=== PATIENT | female | born 1995 | race American Indian/Alaskan Native ===

== ENCOUNTER 2019-09-06 02:34 | Inpatient (IN) | payer MEDICAID ==
[2019-09-06] MEDS ORDERED: Nalbuphine 10 MG/ML Syringe IVPUSH PRN (03:41)
[2019-09-06] MEDS ORDERED: Azithromycin 500 MG in Sodium Chloride 0.9% 250 ML IV ONE (03:41)
[2019-09-06] MEDS ORDERED: ceFAZolin 2 GM in Premix Bag 1 BAG IV ONE (03:41)
[2019-09-06] MEDS ORDERED: Metoclopramide 10 MG/2 ML SDV IVPUSH ONE (03:41)
[2019-09-06] MEDS ORDERED: Citric Acid/Sodium Citrate Solution 30 ML Cup PO ONE (03:41)
[2019-09-06] MEDS ORDERED: Sodium Chloride 0.9% 10 ML Syringe FLUSH PRN (03:41)
[2019-09-06] MEDS ORDERED: Ondansetron 4 MG/2 ML SDV IVPUSH PRN ×2 (03:41→04:43)
[2019-09-06] MEDS ORDERED: Lactated Ringers 1,000 ML IV SCH (03:45)
--- NOTE | 2019-09-06 03:54 | PCM.LDHP ---
L&D History of Present Illness - General Date of Service: 09/06/19 Admit Problem/Dx: Patient Status Order with Admit Dx/Problem 09/06/19 03:03 Patient Status [ADT] Routine Admission Diagnosis/Problem Admission Diagnosis/Problem Source of Information: Patient History Limitations: Reports: No Limitations - History of Present Illness Introduction:: Patient is a 24 y/o at 38 6/7 wks who presents with contraction. 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 (Approximate): - Past Surgical History Female Surgical History: Reports: D&C Social & Family History - Tobacco Use Smoking Status *Q: Never Smoker - Alcohol Use Alcohol Use History: No - Recreational Drug Use Recreational Drug Use: No H&P Review of Systems - Review of Systems: Review Of Systems: See Below General: Reports: No Symptoms Pulmonary: Reports: No Symptoms Cardiovascular: Reports: No Symptoms Gastrointestinal: Reports: Abdominal Pain Genitourinary: Reports: No Symptoms Musculoskeletal: Reports: No Symptoms Psychiatric: Reports: No Symptoms Neurological: Reports: No Symptoms L&D Exam - Exam Exam: See Below - OB Specific Contraction Intensity: Moderate to Strong Movement: Active Heart Tones: Present Heart Tones per Min: 145 Heart Rate (FHR) Variability: Moderate (6-25 bmp) Presentation: Breech (footling) - Dodson Score Dodson Score Cervix Position: Anterior Dodson Score Consistency: Soft Dodson Score Effacement: >80% Dodson Score Dilation: > 5 cm (Patient complete / complete / BBOW) Dodson Score 's Station: +1, +2 Dodson Score Total: 13 - Exam General: Alert, Oriented, Cooperative Lungs: Clear to Auscultation, Normal Respiratory Effort Cardiovascular: Regular Rate, Regular Rhythm GI/Abdominal Exam: Soft, Non-Tender Genitourinary: Normal external exam Extremities: Normal Inspection Skin: Warm, Dry, Intact - Problem List (1) 38 weeks gestation of SNOMED Code(s): 54054260 ICD Code: Z3A.38 - 38 WEEKS GESTATION OF Status: Acute Current Visit: Yes (2) Breech presentation SNOMED Code(s): 0700531 ICD Code: O32.1XX0 - MATERNAL CARE FOR BREECH PRESENTATION, UNSP Status: Acute Current Visit: Yes Qualifiers: Fetus number: single or unspecified fetus Qualified Code(s): O32.1XX0 - Maternal care for breech presentation, not applicable or unspecified Problem List Initiated/Reviewed/Updated: Yes Orders Last 24hrs: Active Orders 24 hr Category Date Time Status Patient Status [ADT] Routine ADT 09/06/19 03:03 Active Communication Order [RC] ROUTINE Care 09/06/19 03:41 Ordered Heart Tones [RC] PER UNIT ROUTINE Care 09/06/19 03:41 Ordered Non Stress Test [RC] PER UNIT ROUTINE Care 09/06/19 03:03 Active Peripheral IV Care [RC] . DIRECTED Care 09/06/19 03:41 Ordered Procedure Site Prep Instruct [RC] ASDIRECTED Care 09/06/19 03:41 Ordered Verify Patient Consent Obtain [RC] PER UNIT ROUTINE Care 09/06/19 03:41 Ordered Vital Signs [RC] PER UNIT ROUTINE Care 09/06/19 03:03 Active Vital Signs [RC] PFP Care 09/06/19 03:41 Ordered CBC W/O DIFF,HEMOGRAM [HEME] Routine Lab 09/06/19 03:41 Ordered RAPID PLASMA REAGIN,RPR [CHEM] Routine Lab 09/06/19 03:41 Ordered TYPE AND SCREEN [BBK] Routine Lab 09/06/19 03:41 Ordered Azithromycin [Zithromax] 500 mg Med 09/06/19 03:41 Ordered Sodium Chloride 0.9% [Normal Saline] 250 ml IV ONETIME Citric Acid/Sodium Citrate [Bicitra Solution] Med 09/06/19 03:41 Once 30 ml PO ONETIME ONE Lactated Ringers @ 125 MLS/HR(1000ml) Med 09/06/19 03:45 Ordered Lactated Ringers [Ringers, Lactated] 1,000 ml IV ASDIRECTED Metoclopramide [Reglan] Med 09/06/19 03:41 Once 10 mg IVPUSH ONETIME ONE Nalbuphine [Nubain] Med 09/06/19 03:41 Ordered 10 mg IVPUSH Q2H PRN Ondansetron [Zofran] Med 09/06/19 03:41 Ordered 4 mg IVPUSH Q4H PRN Sodium Chloride 0.9% [Saline Flush] Med 09/06/19 03:41 Ordered 10 ml FLUSH ASDIRECTED PRN ceFAZolin [Ancef] 2 gm Med 09/06/19 03:41 Ordered Premix Bag 1 bag IV ONETIME Peripheral IV Insertion Adult [OM.PC] Routine Oth 09/06/19 03:41 Ordered Schedule Procedure [COMM] Per Unit Routine Oth 09/06/19 03:41 Ordered Resuscitation Status Routine Resus Stat 09/06/19 03:03 Ordered Medication Orders Citric Acid/Sodium Citrate (Bicitra Solution) 30 ml PO ONETIME ONE Stop: 09/06/19 03:42 Azithromycin 500 mg/ Sodium (Chloride) 250 mls @ 250 mls/hr IV ONETIME ONE Stop: 09/06/19 04:40 Cefazolin Sodium/Dextrose 2 gm (/ Premix) 50 mls @ 100 mls/hr IV ONETIME ONE Stop: 09/06/19 04:10 Lactated Ringer's (Ringers, Lactated) 1,000 mls @ 125 mls/hr IV ASDIRECTED TOI Metoclopramide HCl (Reglan) 10 mg IVPUSH ONETIME ONE Stop: 09/06/19 03:42 Nalbuphine HCl (Nubain) 10 mg IVPUSH Q2H PRN PRN Reason: Pain Ondansetron HCl (Zofran) 4 mg IVPUSH Q4H PRN PRN Reason: Nausea/Vomiting Sodium Chloride (Saline Flush) 10 ml FLUSH ASDIRECTED PRN PRN Reason: Keep Vein Open Assessment/Plan Comment:: Patient complete with breech presentation. Will take for PLTCS. Reviewed risks/ benefits. Consent signed. OR and Peds made aware. Concetta Brizuela MD
--- NOTE | 2019-09-06 03:59 | PCM.PREANE ---
Preanesthetic Assessment - Procedure Proposed Procedure: csection - Anesthesia/Transfusion/Family Hx Anesthesia History: Prior Anesthesia Without Reaction Family History of Anesthesia Reaction: No Transfusion History: Prior Transfusion Without Reaction - Review of Systems General: No Symptoms Pulmonary: No Symptoms Cardiovascular: No Symptoms Gastrointestinal: No Symptoms Neurological: No Symptoms Other: Reports: None - Physical Assessment NPO Status Date: 09/05/19 NPO Status Time: 21:00 Vital Signs: 93 142/74 20 Height: 5 ft 9 in Weight: 115.212 kg ASA Class: 2E Mental Status: Alert & Oriented x3 Airway Class: Mallampati = 1 Dentition: Reports: Normal Dentition Thyro-Mental Finger Breadths: 3 Mouth Opening Finger Breadths: 3 ROM/Head Extension: Full Lungs: Clear to Auscultation, Normal Respiratory Effort Cardiovascular: Regular Rate, Regular Rhythm - Blood Blood Available: No - Acknowledgements Anesthesia Type Planned: Spinal Pt an Appropriate Candidate for the Planned Anesthesia: Yes Alternatives and Risks of Anesthesia Discussed w Pt/Guardian: Yes Pt/Guardian Understands and Agrees with Anesthesia Plan: Yes PreAnesthesia Questionnaire HEENT History: Reports: None Cardiovascular History: Reports: Heart Murmur (when younger- gone now) Respiratory History: Reports: None 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: - Past Surgical History Female Surgical History: Reports: D&C - SUBSTANCE USE Smoking Status *Q: Never Smoker Tobacco Use Within Last Twelve Months: No Second Hand Smoke Exposure: No Recreational Drug Use History: No - CURRENT (IN HOUSE) MEDS Current Meds: Current Medications Citric Acid/Sodium Citrate (Bicitra Solution) 30 ml PO ONETIME ONE Stop: 09/06/19 03:42 Azithromycin 500 mg/ Sodium (Chloride) 250 mls @ 250 mls/hr IV ONETIME ONE Stop: 09/06/19 04:40 Cefazolin Sodium/Dextrose 2 gm (/ Premix) 50 mls @ 100 mls/hr IV ONETIME ONE Stop: 09/06/19 04:10 Lactated Ringer's (Ringers, Lactated) 1,000 mls @ 125 mls/hr IV ASDIRECTED TOI Metoclopramide HCl (Reglan) 10 mg IVPUSH ONETIME ONE Stop: 09/06/19 03:42 Nalbuphine HCl (Nubain) 10 mg IVPUSH Q2H PRN PRN Reason: Pain Ondansetron HCl (Zofran) 4 mg IVPUSH Q4H PRN PRN Reason: Nausea/Vomiting Sodium Chloride (Saline Flush) 10 ml FLUSH ASDIRECTED PRN PRN Reason: Keep Vein Open
[2019-09-06] MEDS ORDERED: Sodium Chloride 0.9% 250 ML ONE (04:02)
[2019-09-06] MEDS ORDERED: ceFAZolin 1 GM Vial ONE (04:05)
[2019-09-06] MEDS ORDERED: Oxytocin 10 Units/1 ML SDV ONE (04:05)
[2019-09-06] MEDS ORDERED: Ketorolac 30 MG/ML SDV ONE (04:05)
[2019-09-06] MEDS ORDERED: Morphine PF 10 MG/10 ML SDV ONE (04:05)
[2019-09-06] MEDS ORDERED: ePHEDrine/Normal Saline 25 MG/5 ML Syringe ONE (04:19)
[2019-09-06] MEDS ORDERED: diphenhydrAMINE 50 MG/ML SDV IVPUSH PRN ×2 (04:43→05:47)
[2019-09-06] MEDS ORDERED: fentaNYL 100 MCG/2 ML SDV IVPUSH PRN (04:43)
--- NOTE | 2019-09-06 05:06 | PCM.OPNOTE ---
- General Post-Op/Procedure Note Date of Surgery/Procedure: 09/06/19 Operative Procedure(s): Primary low transverse Findings: Baby boy in a footling breech presentation. Weight of 8 lbs 12 oz. AGPARS of 3 & 9. Normal appearance of the uterus, fallopian tubes, and ovaries. Pre Op Diagnosis: 38 6/7 weeks. Footling breech. Labor Post-Op Diagnosis: Same Anesthesia Technique: Spinal Primary Surgeon: Concetta Brizuela Secondary Surgeon: Gregory Duncan Anesthesia Provider: Prosper Chaves Reason Atmospheric Physicist Was Necessary: BMI of patient. Speed/safety of procedure Pathology: Cord gas segment obtained. Cord blood obtained. Placenta discarded Fluid Replacement, Intraop: 2,100 Output, Urine Amount: 50 EBL in mLs: 1,000 Complications: None Condition: Good Free Text/Narrative:: The risks, benefits, indications, potential complications, and alternatives were explained to the patient and informed consent obtained. After induction of anesthesia, the patient was placed in a supine position and then draped and prepped in the usual sterile manner. A Pfannenstiel incision was made and carried down through the subcutaneous tissue to the fascia. Fascial incision was made and extended transversely. The fascia was from the underlying rectus tissue superiorly and inferiorly. The peritoneum was identified and entered. Peritoneal incision was extended longitudinally. The utero-vesical peritoneal reflection was incised transversely and the bladder flap was bluntly freed from the lower uterine segment. A low transverse uterine incision was made sharply with a scalpel and extended bluntly in a cephalocaudad direction. A baby boy was delivered from a breech presentation with standard maneuvers. APGARS as above. After the umbilical cord was clamped and cut segment obtained for cord gas. Next, cord blood was obtained for evaluation. The placenta was removed intact and appeared normal. The uterus was exteriorized and cleared of clots. The uterine outline, tubes and ovaries appeared normal. The uterine incision was closed with running locked sutures of 0 Vicryl. Hemostasis was obtained by a second imbricating layer of 0 vicryl. The uterus was then placed back into the abdomen. The infracolic gutters were cleared of blood clots. The fascia was then reapproximated with running sutures of 0 Vicryl. The subcutaneous tissue was irrigated with sterile warm normal saline, hemostasis obtained with cautery. This layer was also closed with a running 0 vicryl suture. The skin was reapproximated with running Subcuticular 4-0 monocryl sutures. Instrument, sponge, and needle counts were correct prior the abdominal closure and at the conclusion of the case.
--- NOTE | 2019-09-06 05:07 | PCM.POSTAN ---
POST ANESTHESIA ASSESSMENT - MENTAL STATUS Mental Status: Alert, Oriented - RESPIRATORY Respiratory Status: Respiratory Rate WNL, Airway Patent, O2 Saturation Stable, Supplemental Oxygen - CARDIOVASCULAR CV Status: Pulse Rate WNL, Blood Pressure Stable - GASTROINTESTINAL GI Status: No Symptoms - PAIN Pain Score: 0 - POST OP HYDRATION Hydration Status: Adequate & Stable
[2019-09-06] MEDS ORDERED: Dextrose 5%-Lactated Ringers 1,000 ML IV SCH (05:47)
[2019-09-06] MEDS ORDERED: Ondansetron 4 MG/2 ML SDV IV PRN (05:47)
[2019-09-06] MEDS ORDERED: Naloxone 0.4 MG/ML SDV IVPUSH PRN (05:47)
[2019-09-06] MEDS ORDERED: ePHEDrine 50 MG/ML SDV IVPUSH PRN (05:47)
[2019-09-06] MEDS ORDERED: Docusate Sodium 100 MG Cap PO PRN (05:47)
[2019-09-06] MEDS ORDERED: Lactated Ringers 500 ML IV ONE (12:12)
[2019-09-06] MEDS: Ketorolac 30 MG/ML SDV IVPUSH SCH ×3 (12:19→22:15)
--- NOTE | 2019-09-06 19:45 | PCM48HPAN ---
Post Anesthesia Note - EVALUATION WITHIN 48HRS OF ANESTHETIC Vital Signs in Normal Range: Yes Patient Participated in Evaluation: Yes Respiratory Function Stable: Yes Airway Patent: Yes Cardiovascular Function Stable: Yes Hydration Status Stable: Yes Pain Control Satisfactory: Yes Nausea and Vomiting Control Satisfactory: Yes Mental Status Recovered: Yes Vital Signs: Last Vital Signs Temp 97.3 F 09/06/19 17:20 Pulse 94 09/06/19 17:20 Resp 26 H 09/06/19 19:00 BP 100/53 L 09/06/19 17:20 Pulse Ox 97 09/06/19 19:00 - COMMENTS/OBSERVATIONS Free Text/Narrative:: sitting up in bed holding baby. no complaints
[2019-09-07] MEDS ORDERED: Ibuprofen 600 MG Tab PO PRN (04:00)
[2019-09-07] MEDS: Acetaminophen/oxyCODONE 325-5 MG Tab PO PRN ×4 (04:23→22:34)
--- NOTE | 2019-09-07 07:15 | PCM.PNPP ---
- General Info Date of Service: 09/07/19 Functional Status: Reports: Pain Controlled, Tolerating Diet, Ambulating, Urinating - Review of Systems General: Reports: No Symptoms Pulmonary: Reports: No Symptoms Cardiovascular: Reports: No Symptoms Gastrointestinal: Reports: Abdominal Pain (managed with medications ) Genitourinary: Reports: No Symptoms Musculoskeletal: Reports: No Symptoms Neurological: Reports: No Symptoms - Patient Data Vital Signs - Most Recent: Last Vital Signs Temp 37.3 C 09/07/19 04:19 Pulse 97 09/07/19 04:19 Resp 22 H 09/07/19 07:00 BP 110/59 L 09/07/19 04:19 Pulse Ox 98 09/07/19 07:00 Weight - Most Recent: 115.212 kg I&O - Last 24 Hours: Intake & Output 09/06/19 09/07/19 09/07/19 22:59 06:59 14:59 Intake Total 440 Output Total 1000 1425 Balance -560 -1425 Lab Results - Last 24 Hours: Laboratory Results - last 24 hr 09/07/19 Range/Units 05:50 WBC 9.26 (3.98-10.04) K/mm3 RBC 3.24 L (3.98-5.22) M/mm3 Hgb 8.5 L D (11.2-15.7) gm/dl Hct 26.7 L (34.1-44.9) % MCV 82.4 (79.4-94.8) fl MCH 26.2 (25.6-32.2) pg MCHC 31.8 L (32.2-35.5) g/dl RDW Std Deviation 42.6 (36.4-46.3) fL Plt Count 227 D (182-369) K/mm3 MPV 10.3 (9.4-12.3) fl Med Orders - Current: Current Medications Diphenhydramine HCl (Benadryl) 25 mg IVPUSH Q6H PRN PRN Reason: Pruritis Diphenhydramine HCl (Benadryl) 25 mg IVPUSH Q6H PRN PRN Reason: Itching or Nausea Docusate Sodium (Colace) 100 mg PO Q12H PRN PRN Reason: Constipation Ephedrine Sulfate (Ephedrine Sulfate) 5 mg IVPUSH SEECOMMENT PRN PRN Reason: Other Fentanyl (Sublimaze) 50 mcg IVPUSH Q5M PRN PRN Reason: Pain Ibuprofen (Motrin) 600 mg PO Q6H PRN PRN Reason: mild pain or fever Naloxone HCl (Narcan) 0.1 mg IVPUSH SEECOMMENT PRN PRN Reason: Respiratory Depression Ondansetron HCl (Zofran) 4 mg IVPUSH ONETIME PRN PRN Reason: Nausea/Vomiting Ondansetron HCl (Zofran) 4 mg IV Q8H PRN PRN Reason: Nausea/Vomiting Oxycodone/Acetaminophen (Percocet 325-5 Mg) 2 tab PO Q4H PRN PRN Reason: Pain (severe 7-10) Last Admin: 09/07/19 04:23 Dose: 2 tab Discontinued Medications Cefazolin Sodium (Ancef) Confirm Administered Dose 2 gm .ROUTE .STK-MED ONE Stop: 09/06/19 04:06 Citric Acid/Sodium Citrate (Bicitra Solution) 30 ml PO ONETIME ONE Stop: 09/06/19 03:42 Last Admin: 09/06/19 04:00 Dose: 30 ml Ephedrine Sulfate (Ephedrine In Ns) Confirm Administered Dose 25 mg .ROUTE .STK- MED ONE Stop: 09/06/19 04:20 Azithromycin 500 mg/ Sodium (Chloride) 250 mls @ 250 mls/hr IV ONETIME ONE Stop: 09/06/19 04:40 Last Admin: 09/06/19 08:06 Dose: Not Given Cefazolin Sodium/Dextrose 2 gm (/ Premix) 50 mls @ 100 mls/hr IV ONETIME ONE Stop: 09/06/19 04:10 Last Admin: 09/06/19 09:42 Dose: Not Given Lactated Ringer's (Ringers, Lactated) 1,000 mls @ 125 mls/hr IV ASDIRECTED [facility] Last Admin: 09/06/19 03:50 Dose: 999 mls/hr Sodium Chloride (Normal Saline) Confirm Administered Dose 250 mls @ as directed .ROUTE .STK-MED ONE Stop: 09/06/19 04:03 Last Admin: 09/06/19 08:06 Dose: Not Given Dextrose/Lactated Ringer's (Dextrose 5%-Lactated Ringers) 1,000 mls @ 125 mls/ hr IV ASDIRECTED [facility] Stop: 09/06/19 13:46 Last Admin: 09/06/19 08:08 Dose: 125 mls/hr Lactated Ringer's (Ringers, Lactated) 500 mls @ 999 mls/hr IV .BOLUS ONE Stop: 09/06/19 12:42 Last Admin: 09/06/19 12:20 Dose: 999 mls/hr Ketorolac Tromethamine (Toradol) Confirm Administered Dose 30 mg .ROUTE .STK- MED ONE Stop: 09/06/19 04:06 Ketorolac Tromethamine (Toradol) 30 mg IVPUSH Q6H TOI Stop: 09/06/19 22:01 Last Admin: 09/06/19 22:15 Dose: 30 mg Metoclopramide HCl (Reglan) 10 mg IVPUSH ONETIME ONE Stop: 09/06/19 03:42 Last Admin: 09/06/19 04:02 Dose: 10 mg Morphine Sulfate (Duramorph Pf) Confirm Administered Dose 10 mg .ROUTE .STK-MED ONE Stop: 09/06/19 04:06 Nalbuphine HCl (Nubain) 10 mg IVPUSH Q2H PRN PRN Reason: Pain Ondansetron HCl (Zofran) 4 mg IVPUSH Q4H PRN PRN Reason: Nausea/Vomiting Oxytocin (Pitocin) Confirm Administered Dose 10 unit .ROUTE .STK-MED ONE Stop: 09/06/19 04:06 Sodium Chloride (Saline Flush) 10 ml FLUSH ASDIRECTED PRN PRN Reason: Keep Vein Open - Infant Interaction Disposition, : in Room with Family Interaction: Holding Infant Feeding: Breastfed ; Nursed Well Support Person: Significant Other - Recovery Exam Fundal Tone: Firm Fundal Level: 1 Fingerbreadths Below Umbilicus Fundal Placement: Midline Lochia Amount: Small, Moderate Lochia Color: Rubra/Red Perineum Description: Intact, Minimal Bruising/Swelling Episiotomy/Laceration: None Bladder Status: Voiding Urinary Elimination: Voided - Exam General: Alert, Oriented, Cooperative Lungs: Clear to Auscultation, Normal Respiratory Effort Cardiovascular: Regular Rate, Regular Rhythm GI/Abdominal Exam: Soft, Tender (appropriate ) Extremities: Normal Inspection Skin: Warm, Dry, Intact Wound/Incisions: Healing Well, No Drainage - Problem List & Annotations (1) 38 weeks gestation of SNOMED Code(s): 62010712 Code(s): Z3A.38 - 38 WEEKS GESTATION OF Status: Acute Current Visit: Yes (2) Breech presentation SNOMED Code(s): 1319156 Code(s): O32.1XX0 - MATERNAL CARE FOR BREECH PRESENTATION, UNSP Status: Acute Current Visit: Yes Qualifiers: Fetus number: single or unspecified fetus Qualified Code(s): O32.1XX0 - Maternal care for breech presentation, not applicable or unspecified (3) S/P primary low transverse SNOMED Code(s): 080647934, 04678494, 508313665, 031437324, 467010869 Code(s): Z98.891 - HISTORY OF UTERINE SCAR FROM PREVIOUS SURGERY Status: Acute Current Visit: Yes - Problem List Review Problem List Initiated/Reviewed/Updated: Yes - My Orders Last 24 Hours: My Active Orders 09/06/19 Breakfast Regular Diet [DIET] 09/07/19 04:00 Ibuprofen [Motrin] 600 mg PO Q6H PRN 09/07/19 05:07 Urinary Catheter Removal [RC] Per Unit Routine - Assessment Assessment:: PPD#1 from PLTCS - Plan Plan:: * Routine cares * Breast feeding * Discharge home in 1-2 days
[2019-09-08] MEDS: Acetaminophen/oxyCODONE 325-5 MG Tab PO PRN (03:15)
--- NOTE | 2019-09-08 07:44 | PCM.PNPP ---
- General Info Date of Service: 09/08/19 Functional Status: Reports: Pain Controlled, Tolerating Diet, Ambulating, Urinating - Review of Systems General: Reports: No Symptoms Pulmonary: Reports: No Symptoms Cardiovascular: Reports: No Symptoms Gastrointestinal: Reports: No Symptoms Genitourinary: Reports: No Symptoms Musculoskeletal: Reports: No Symptoms Neurological: Reports: No Symptoms - Patient Data Vital Signs - Most Recent: Last Vital Signs Temp 36.8 C 09/08/19 03:17 Pulse 86 09/08/19 03:17 Resp 17 09/07/19 21:31 BP 106/58 L 09/08/19 03:17 Pulse Ox 95 09/08/19 03:17 Weight - Most Recent: 115.212 kg Lab Results - Last 24 Hours: Laboratory Results - last 24 hr 09/06/19 Range/Units 03:45 RPR Non-reactive (NONREACTIVE) Med Orders - Current: Current Medications Diphenhydramine HCl (Benadryl) 25 mg IVPUSH Q6H PRN PRN Reason: Pruritis Diphenhydramine HCl (Benadryl) 25 mg IVPUSH Q6H PRN PRN Reason: Itching or Nausea Docusate Sodium (Colace) 100 mg PO Q12H PRN PRN Reason: Constipation Last Admin: 09/08/19 03:15 Dose: 100 mg Ephedrine Sulfate (Ephedrine Sulfate) 5 mg IVPUSH SEECOMMENT PRN PRN Reason: Other Fentanyl (Sublimaze) 50 mcg IVPUSH Q5M PRN PRN Reason: Pain Ibuprofen (Motrin) 600 mg PO Q6H PRN PRN Reason: mild pain or fever Naloxone HCl (Narcan) 0.1 mg IVPUSH SEECOMMENT PRN PRN Reason: Respiratory Depression Ondansetron HCl (Zofran) 4 mg IVPUSH ONETIME PRN PRN Reason: Nausea/Vomiting Ondansetron HCl (Zofran) 4 mg IV Q8H PRN PRN Reason: Nausea/Vomiting Oxycodone/Acetaminophen (Percocet 325-5 Mg) 2 tab PO Q4H PRN PRN Reason: Pain (severe 7-10) Last Admin: 09/08/19 03:15 Dose: 2 tab Discontinued Medications Cefazolin Sodium (Ancef) Confirm Administered Dose 2 gm .ROUTE .STK-MED ONE Stop: 09/06/19 04:06 Citric Acid/Sodium Citrate (Bicitra Solution) 30 ml PO ONETIME ONE Stop: 09/06/19 03:42 Last Admin: 09/06/19 04:00 Dose: 30 ml Ephedrine Sulfate (Ephedrine In Ns) Confirm Administered Dose 25 mg .ROUTE .STK- MED ONE Stop: 09/06/19 04:20 Azithromycin 500 mg/ Sodium (Chloride) 250 mls @ 250 mls/hr IV ONETIME ONE Stop: 09/06/19 04:40 Last Admin: 09/06/19 08:06 Dose: Not Given Cefazolin Sodium/Dextrose 2 gm (/ Premix) 50 mls @ 100 mls/hr IV ONETIME ONE Stop: 09/06/19 04:10 Last Admin: 09/06/19 09:42 Dose: Not Given Lactated Ringer's (Ringers, Lactated) 1,000 mls @ 125 mls/hr IV [facility]RECTED [facility] Last Admin: 09/06/19 03:50 Dose: 999 mls/hr Sodium Chloride (Normal Saline) Confirm Administered Dose 250 mls @ as directed .ROUTE .STK-MED ONE Stop: 09/06/19 04:03 Last Admin: 09/06/19 08:06 Dose: Not Given Dextrose/Lactated Ringer's (Dextrose 5%-Lactated Ringers) 1,000 mls @ 125 mls/ hr IV [facility]IRECTED [facility] Stop: 09/06/19 13:46 Last Admin: 09/06/19 08:08 Dose: 125 mls/hr Lactated Ringer's (Ringers, Lactated) 500 mls @ 999 mls/hr IV .BOLUS ONE Stop: 09/06/19 12:42 Last Admin: 09/06/19 12:20 Dose: 999 mls/hr Ketorolac Tromethamine (Toradol) Confirm Administered Dose 30 mg .ROUTE .STK- MED ONE Stop: 09/06/19 04:06 Ketorolac Tromethamine (Toradol) 30 mg IVPUSH Q6H TOI Stop: 09/06/19 22:01 Last Admin: 09/06/19 22:15 Dose: 30 mg Metoclopramide HCl (Reglan) 10 mg IVPUSH ONETIME ONE Stop: 09/06/19 03:42 Last Admin: 09/06/19 04:02 Dose: 10 mg Morphine Sulfate (Duramorph Pf) Confirm Administered Dose 10 mg .ROUTE .STK-MED ONE Stop: 09/06/19 04:06 Nalbuphine HCl (Nubain) 10 mg IVPUSH Q2H PRN PRN Reason: Pain Ondansetron HCl (Zofran) 4 mg IVPUSH Q4H PRN PRN Reason: Nausea/Vomiting Oxytocin (Pitocin) Confirm Administered Dose 10 unit .ROUTE .STK-MED ONE Stop: 09/06/19 04:06 Sodium Chloride (Saline Flush) 10 ml FLUSH ASDIRECTED PRN PRN Reason: Keep Vein Open - Interaction Disposition, : [place] in Room with Family Interaction: Holding Infant Feeding: Bottle Fed Infant, Breastfed Infant; Nursed Well Support Person: Significant Other - Recovery Exam Fundal Tone: Firm Fundal Level: 2 Fingerbreadths Below Umbilicus Fundal Placement: Midline Lochia Amount: Small Lochia Color: Rubra/Red Perineum Description: Intact, Minimal Bruising/Swelling Episiotomy/Laceration: None Bladder Status: Voiding Urinary Elimination: Voided - Exam General: Alert, Oriented, Cooperative Lungs: Clear to Auscultation, Normal Respiratory Effort Cardiovascular: Regular Rate, Regular Rhythm GI/Abdominal Exam: Soft, Tender (appropriate) Extremities: Normal Inspection Skin: Warm, Dry, Intact Wound/Incisions: Healing Well, No Drainage - Problem List & Annotations (1) 38 weeks gestation of SNOMED Code(s): 77343286 Code(s): Z3A.38 - 38 WEEKS GESTATION OF Status: Acute Current Visit: Yes (2) Breech presentation SNOMED Code(s): 1074450 Code(s): O32.1XX0 - MATERNAL CARE FOR BREECH PRESENTATION, UNSP Status: Acute Current Visit: Yes Qualifiers: Fetus number: single or unspecified fetus Qualified Code(s): O32.1XX0 - Maternal care for breech presentation, not applicable or unspecified (3) S/P primary low transverse SNOMED Code(s): 360873461, 29446536, 872382411, 140383437, 030159105 Code(s): Z98.891 - HISTORY OF UTERINE SCAR FROM PREVIOUS SURGERY Status: Acute Current Visit: Yes - Problem List Review Problem List Initiated/Reviewed/Updated: Yes - Assessment Assessment:: PPD#2 from PLTCS - Plan Plan:: * Routine cares * Breast feeding * Discharge home today
--- NOTE | 2019-09-08 07:48 | PCM.DCSUM1 ---
Discharge Summary - Discharge Data Discharge Date: 09/08/19 Discharge Disposition: Home, Self-Care 01 Condition: Good - Referral to Home Health Primary Care Physician: Concetta Brizuela MD - Discharge Diagnosis/Problem(s) (1) 38 weeks gestation of SNOMED Code(s): 39044365 ICD Code: Z3A.38 - 38 WEEKS GESTATION OF Status: Acute (2) Breech presentation SNOMED Code(s): 4449570 ICD Code: O32.1XX0 - MATERNAL CARE FOR BREECH PRESENTATION, UNSP Status: Acute Qualifiers: Fetus number: single or unspecified fetus Qualified Code(s): O32.1XX0 - Maternal care for breech presentation, not applicable or unspecified (3) S/P primary low transverse SNOMED Code(s): 286249995, 13135313, 500616463, 940376840, 800797016 ICD Code: Z98.891 - HISTORY OF UTERINE SCAR FROM PREVIOUS SURGERY Status: Acute - Patient Summary/Data Operative Procedure(s) Performed: Primary low transverse Complications: None Consults: None Recommended Follow-up Testing/Procedures: Follow up in 1 week for incision check Hospital Course: 24 y/o admitted at 38 6/7 wks for labor. On admission completely dilated, but with footling breech presentation. Taken for urgent . This was uncomplicated. See operative note. patient did well and was discharged home on PPD#2 - Patient Instructions Diet: Regular Diet as Tolerated Activity: No Lifting Over 10 Pounds Activity, Other: Pelvic rest for 6 weeks Driving: Do Not Drive (while taking narcotics ) Showering/Bathing: May Shower, No Tub Bathing/Swimming Wound/Incision Care: Keep Operative Site/Wound Site Clean and Dry Notify Provider of: Fever, Increased Pain, Swelling and Redness, Drainage, Nausea and/or Vomiting - Discharge Plan *PRESCRIPTION DRUG MONITORING PROGRAM REVIEWED*: Not Applicable *COPY OF PRESCRIPTION DRUG MONITORING REPORT IN PATIENT ISABEL: Not Applicable Prescriptions/Med Rec: Acetaminophen/oxyCODONE [Percocet 325-5 MG] 2 tab PO Q4H PRN #25 tablet PRN Reason: Pain (Severe 7-10) Home Medications: Home Meds Acetaminophen/oxyCODONE [Percocet 325-5 MG] 2 tab PO Q4H PRN #25 tablet [Rx] Docusate Sodium [Colace] 100 mg PO Q12H PRN cap 09/08/19 [Rx] Ibuprofen [Motrin] 600 mg PO Q6H PRN tablet 09/08/19 [Rx] Patient Handouts: Delivery, Care After Referrals: Korin Ingram MD [Physician] - (1 week for incision check ) - Discharge Summary/Plan Comment DC Time >30 min.: No - Patient Data Vitals - Most Recent: Last Vital Signs Temp 36.8 C 09/08/19 03:17 Pulse 86 09/08/19 03:17 Resp 17 09/07/19 21:31 BP 106/58 L 09/08/19 03:17 Pulse Ox 95 09/08/19 03:17 Weight - Most Recent: 115.212 kg Lab Results - Last 24 hrs: Laboratory Results - last 24 hr 09/06/19 Range/Units 03:45 RPR Non-reactive (NONREACTIVE) Med Orders - Current: Current Medications Diphenhydramine HCl (Benadryl) 25 mg IVPUSH Q6H PRN PRN Reason: Pruritis Diphenhydramine HCl (Benadryl) 25 mg IVPUSH Q6H PRN PRN Reason: Itching or Nausea Docusate Sodium (Colace) 100 mg PO Q12H PRN PRN Reason: Constipation Last Admin: 09/08/19 03:15 Dose: 100 mg Ephedrine Sulfate (Ephedrine Sulfate) 5 mg IVPUSH SEECOMMENT PRN PRN Reason: Other Fentanyl (Sublimaze) 50 mcg IVPUSH Q5M PRN PRN Reason: Pain Ibuprofen (Motrin) 600 mg PO Q6H PRN PRN Reason: mild pain or fever Naloxone HCl (Narcan) 0.1 mg IVPUSH SEECOMMENT PRN PRN Reason: Respiratory Depression Ondansetron HCl (Zofran) 4 mg IVPUSH ONETIME PRN PRN Reason: Nausea/Vomiting Ondansetron HCl (Zofran) 4 mg IV Q8H PRN PRN Reason: Nausea/Vomiting Oxycodone/Acetaminophen (Percocet 325-5 Mg) 2 tab PO Q4H PRN PRN Reason: Pain (severe 7-10) Last Admin: 09/08/19 03:15 Dose: 2 tab Discontinued Medications Cefazolin Sodium (Ancef) Confirm Administered Dose 2 gm .ROUTE .K-MED ONE Stop: 09/06/19 04:06 Citric Acid/Sodium Citrate (Bicitra Solution) 30 ml PO ONETIME ONE Stop: 09/06/19 03:42 Last Admin: 09/06/19 04:00 Dose: 30 ml Ephedrine Sulfate (Ephedrine In Ns) Confirm Administered Dose 25 mg .ROUTE .K- MED ONE Stop: 09/06/19 04:20 Azithromycin 500 mg/ Sodium (Chloride) 250 mls @ 250 mls/hr IV ONETIME ONE Stop: 09/06/19 04:40 Last Admin: 09/06/19 08:06 Dose: Not Given Cefazolin Sodium/Dextrose 2 gm (/ Premix) 50 mls @ 100 mls/hr IV ONETIME ONE Stop: 09/06/19 04:10 Last Admin: 09/06/19 09:42 Dose: Not Given Lactated Ringer's (Ringers, Lactated) 1,000 mls @ 125 mls/hr IV ASDIRECTED [facility] Last Admin: 09/06/19 03:50 Dose: 999 mls/hr Sodium Chloride (Normal Saline) Confirm Administered Dose 250 mls @ as directed .ROUTE .[facility]-MED ONE Stop: 09/06/19 04:03 Last Admin: 09/06/19 08:06 Dose: Not Given Dextrose/Lactated Ringer's (Dextrose 5%-Lactated Ringers) 1,000 mls @ 125 mls/ hr IV ASDIRECTED [facility] Stop: 09/06/19 13:46 Last Admin: 09/06/19 08:08 Dose: 125 mls/hr Lactated Ringer's (Ringers, Lactated) 500 mls @ 999 mls/hr IV .BOLUS ONE Stop: 09/06/19 12:42 Last Admin: 09/06/19 12:20 Dose: 999 mls/hr Ketorolac Tromethamine (Toradol) Confirm Administered Dose 30 mg .ROUTE .STK- MED ONE Stop: 09/06/19 04:06 Ketorolac Tromethamine (Toradol) 30 mg IVPUSH Q6H TOI Stop: 09/06/19 22:01 Last Admin: 09/06/19 22:15 Dose: 30 mg Metoclopramide HCl (Reglan) 10 mg IVPUSH ONETIME ONE Stop: 09/06/19 03:42 Last Admin: 09/06/19 04:02 Dose: 10 mg Morphine Sulfate (Duramorph Pf) Confirm Administered Dose 10 mg .ROUTE .STK-MED ONE Stop: 09/06/19 04:06 Nalbuphine HCl (Nubain) 10 mg IVPUSH Q2H PRN PRN Reason: Pain Ondansetron HCl (Zofran) 4 mg IVPUSH Q4H PRN PRN Reason: Nausea/Vomiting Oxytocin (Pitocin) Confirm Administered Dose 10 unit .ROUTE .STK-MED ONE Stop: 09/06/19 04:06 Sodium Chloride (Saline Flush) 10 ml FLUSH ASDIRECTED PRN PRN Reason: Keep Vein Open
[2019-09-08] MEDS ORDERED: Measles, Mumps & Rubella Vaccine 0.5 ML SDV SUBCUT ONE (10:15)
== END 2019-09-08 12:45 | disposition home or self-care (01) | DRG 788 ==
LOC: JD.OBCHECK 02:34 → JD.OB 02:56 → JD.OBCHECK 04:26 → JD.OB 04:26
PROVIDERS: ADMIT Obstetrics & Gynecology; ATTEND Obstetrics & Gynecology
PROC: 10D00Z1 Extraction of Products of Conception, Low, Open Approach (ICD-10-PCS; principal; 2019-09-06)
DX: O32.8XX0 Maternal care for other malpresentation of fetus, not applicable or unspecified (principal); Z3A.38 38 weeks gestation of pregnancy; Z37.0 Single live birth
CPT/HCPCS: 36415; 59025; 85027; 86592; 86850; 86900; 86901; 90471; 90707; 94762; A9270-GY; J0690; J1885; J2270; J2590; J2765; J7050; J7120; J7121

== ENCOUNTER 2020-12-04 20:29 | Emergency (ER) | payer MEDICAID, SELFPAY ==
[2020-12-04] MEDS ORDERED: LORazepam 0.5 MG Tab PO ONE (21:15)
--- NOTE | 2020-12-04 21:23 | EDM.PDOCBH ---
ED HPI GENERAL MEDICAL PROBLEM - General Chief Complaint: Behavioral/Psych Stated Complaint: POSS PANIC ATTACK Time Seen by Provider: 12/04/20 20:44 Source of Information: Reports: Patient, RN Notes Reviewed History Limitations: Reports: No Limitations - History of Present Illness INITIAL COMMENTS - FREE TEXT/NARRATIVE: Patient is a 25-year-old female who presents to the ED for the evaluation of a possible panic attack. Patient notes that she has been having issues with increased anxiety for the last month, she notes that the anxiety seems to started around 7 PM at night and lasts until around 10 PM at night. She has had increased stress at home, and states that she lost her father suddenly 6 months ago, and lost another close family member roughly 1 year ago. She states that when she was driving herself home tonight, she began to feel panicked, she started to hyperventilate, and states that she could not move her hands and had some chest discomfort, the chest discomfort goes away after the anxiety symptoms subside. She has no fevers or chills, cough/shortness of breath, nausea/vomiting/diarrhea. Patient was concerned about cardiac issues as her father from a heart attack. - Related Data Allergies Allergy/AdvReac Type Severity Reaction Status Date / Time No Known Allergies Allergy Verified 12/04/20 20:55 Home Meds: Home Meds LORazepam [Ativan] 1 mg PO QPM PRN #12 tab 12/04/20 [Rx] Past Medical History HEENT History: Reports: None Cardiovascular History: Reports: Heart Murmur Respiratory History: Reports: None Gastrointestinal History: Reports: None Genitourinary History: Reports: None MANAGER ETHICS History: Reports: Musculoskeletal History: Reports: None Neurological History: Reports: None Psychiatric History: Reports: None Endocrine/Metabolic History: Reports: None Hematologic History: Reports: None Immunologic History: Reports: None Oncologic (Cancer) History: Reports: None Dermatologic History: Reports: None - Infectious Disease History Infectious Disease History: Reports: Novel Coronavirus - Past Surgical History Head Surgeries/Procedures: Reports: None HEENT Surgical History: Reports: None Respiratory Surgical History: Reports: None GI Surgical History: Reports: None Female Surgical History: Reports: D&C Endocrine Surgical History: Reports: None Neurological Surgical History: Reports: None Musculoskeletal Surgical History: Reports: None Oncologic Surgical History: Reports: None Dermatological Surgical History: Reports: None Social & Family History - Family History Family Medical History: No Pertinent Family History - Tobacco Use Tobacco Use Status *Q: Never Tobacco User - Caffeine Use Caffeine Use: Reports: Coffee, Other Other Caffeine Use: occasional ED ROS GENERAL - Review of Systems Review Of Systems: Comprehensive ROS is negative, except as noted in HPI. ED EXAM, BEHAVIORAL HEALTH - Physical Exam Exam: See Below Exam Limited By: No Limitations General Appearance: Alert, WD/WN, No Apparent Distress, Anxious (slight generalized anxiety) Respiratory/Chest: No Respiratory Distress, Lungs Clear, Normal Breath Sounds, No Accessory Muscle Use, Chest Non-Tender Cardiovascular: Normal Peripheral Pulses, Regular Rate, Rhythm, No Edema GI/Abdominal: Normal Bowel Sounds, Soft, Non-Tender, No Distention, No Mass Extremities: Normal Inspection, Normal Capillary Refill Neurological: Alert, Normal Mood/Affect, Normal Cognition, No Motor/Sensory Deficits Psychiatric: Alert, Normal Affect, Normal Cognition, Normal Mood, Oriented Skin Exam: Warm, Dry, Intact, Normal color, No rash COURSE, BEHAVIORAL HEALTH COMP - Course Vital Signs: Last Vital Signs Temp 97.6 F 12/04/20 20:53 Pulse 76 12/04/20 20:53 Resp 16 12/04/20 20:53 BP 123/78 12/04/20 20:53 Pulse Ox 100 12/04/20 20:53 Orders, Labs, Meds: Medications Discontinued Medications Generic Name Dose Route Start Last Admin Trade Name Rodrigo PRN Reason Stop Dose Admin Lorazepam 1 mg 12/04/20 21:15 12/04/20 21:27 Lorazepam 0.5 Mg Tab PO 12/04/20 21:16 1 mg ONETIME ONE Administration Discharge vs Psych Eval/Treatment:: 12/04/20 21:21 Patient presents to the ED for her possible panic attack, we will go ahead and trial p.o. Ativan with her to see if this helps relieve some of her symptoms, since this only seems to be at night, I will try to provide her with a few tablets to take at nighttime when she develops symptoms and she will have to follow-up with her provider in clinic for ongoing management of her anxiety. Patient verbalized understanding. 12/04/20 21:46 Patient was reassessed at bedside, states she is feeling much better. She is ready to go home at this time, I will refer her to [facility] for counseling purposes as she was requesting referral to counseling. Departure - Departure Time of Disposition: 21:21 Disposition: Home, Self-Care 01 Condition: Good Clinical Impression: Panic attacks - Discharge Information *PRESCRIPTION DRUG MONITORING PROGRAM REVIEWED*: No *COPY OF PRESCRIPTION DRUG MONITORING REPORT IN PATIENT ISABEL: No Prescriptions: LORazepam [Ativan] 1 mg PO QPM PRN #12 tab PRN Reason: Anxiety Instructions: Panic Attack, Mlvx-av-Nive, Managing Anxiety, Adult Referrals: PCP,None [Primary Care Provider] - Forms: ED Department Discharge Additional Instructions: You were evaluated in the ER today for your panic attack. The symptoms you described, were consistent with a panic attack however these seem to subside quite a bit before coming to the ER. You were given oral Ativan, and this seemed to help relieve more of the symptoms. You were given a prescription for Ativan, you may take 1 tablet at night, just prior to the onset of symptoms, if you note that the symptoms are starting at 7 PM, you may take the medication around 6:45 PM to see if this helps decrease your anxiety at night. If you are having continuing issues with anxiety like this, highly recommend you talk with your provider at your home clinic, to see if they would suggest a more long-term solution. The Ativan medication is for temporary relief of anxiety symptoms. Your prescription for Ativan was sent to the [facility], you will need to go there tomorrow during normal business hours to pickle maker the medication and take as directed. Please call [facility] in the AM at [phone] to inquire about counseling services that they could direct you to for ongoing stress management. Their after hour emergency crisis number is [phone]. Please return to the ER at any time if symptoms change or worsen. Sepsis Event Note (ED) - Evaluation Sepsis Screening Result: No Definite Risk - Focused Exam Vital Signs: Vital Signs Temp Pulse Resp BP Pulse Ox 12/04/20 20:53 97.6 F 76 16 123/78 100
== END 2020-12-04 22:10 | disposition home or self-care (01) ==
LOC: JD.ED 20:29
DX: F41.0 Panic disorder [episodic paroxysmal anxiety] (principal)
CPT/HCPCS: 99283; A9270